=== PATIENT | female | born 1970 | race African-American/Black ===

== ENCOUNTER 2021-04-02 13:35 | Inpatient (IN) | payer OTHER ==
[2021-04-02 16:23] VITALS: BMI 22.2
[2021-04-02] MEDS ORDERED: ACETAMINOPHEN 325 MG TABLET (FP) PO PRN (21:39)
[2021-04-02] MEDS ORDERED: NICOTINE 10 MG CARTRIDGE (INHALER) IH PRN (21:39)
[2021-04-02] MEDS ORDERED: MAGNESIUM CITRATE 300 ML BOTTLE PO PRN (21:39)
[2021-04-02] MEDS ORDERED: MAG HYDROX/AL HYDROX/SIMETH 30 ML UNIT-DOSE CUP PO PRN (21:39)
[2021-04-02] MEDS ORDERED: diazePAM 5 MG TABLET PO PRN (21:39)
[2021-04-02] MEDS ORDERED: BISMUTH SUBSALICYLATE 524 MG/30 ML PO PRN (21:39)
[2021-04-02] MEDS ORDERED: IBUPROFEN 400 MG TABLET (FP) PO PRN (21:39)
[2021-04-02] MEDS ORDERED: MAGNESIUM HYDROX 2400MG/30ML ORAL SUSPENSION 30 ML CUP PO PRN (21:39)
[2021-04-02] MEDS ORDERED: ONDANSETRON *ODT* 4 MG TABLET SL PRN (21:39)
[2021-04-02] MEDS ORDERED: MENTHOL/PHENOL 1 EACH UD MM PRN (21:39)
[2021-04-02] MEDS: MELATONIN 5 MG TABLETS PO SCH (22:42)
[2021-04-02] MEDS: THIAMINE HCL 100 MG TABLET (FP) PO SCH (22:42)
[2021-04-02] MEDS: diazePAM 5 MG TABLET PO SCH (22:42)
[2021-04-02] MEDS: hydrOXYzine PAMOATE 25 MG CAPSULE (FP) PO SCH (22:42)
[2021-04-02] MEDS: ALBUTEROL SO4 HFA INHALER IH PRN (23:02)
[2021-04-03] MEDS: hydrOXYzine PAMOATE 25 MG CAPSULE (FP) PO SCH (06:05)
[2021-04-03] MEDS: diazePAM 5 MG TABLET PO SCH ×4 (06:05→22:32)
[2021-04-03] MEDS: METHOCARBAMOL 500 MG TABLET PO PRN ×2 (06:07→22:32)
[2021-04-03] MEDS: ACETAMINOPHEN 325 MG TABLET (FP) PO PRN ×2 (06:10→17:43)
[2021-04-03 08:58] LABS: EPI CELLS 11 /uL (0-25.1); HYALINE CASTS 0 /uL (0-3.1); URINE APPEARANCE CLEAR; URINE BACTERIA 1511 /uL (0-1359); URINE BILIRUBIN NEGATIVE (NEGATIVE); URINE COLOR YELLOW; URINE GLUCOSE (UA) 3+ (NEGATIVE); URINE KETONE NEGATIVE (NEGATIVE); URINE LEUK ESTERASE TRACE (NEGATIVE); URINE NITRITE NEGATIVE (NEGATIVE); URINE PROTEIN NEGATIVE (NEGATIVE); URINE RBC 1 /uL (0-23.9); URINE UROBILINOGEN 0.2 mg/dL (0.2-1.0); URINE WBC 24 /uL (0-25.8)
[2021-04-03] MEDS: NICOTINE 7 MG/24 HOURS TOPICAL PATCH TD SCH (10:52)
[2021-04-03] MEDS: PRENATAL VITAMINS W/ FOLIC ACID TABLET (FP) PO SCH (10:52)
[2021-04-03] MEDS ORDERED: INSULIN SLIDING SCALE (NOVOLOG) 1 VIAL SQ SCH (11:00)
[2021-04-03] MEDS ORDERED: INSULIN (NOVOLOG) ASPART 100 UNITS/ML 10ML VIAL SQ ONE (11:29)
[2021-04-03 11:33] LABS: HEMATOCRIT 40.6 % (32.4-45.2); HEMOGLOBIN 13.6 GM/dL (10.7-15.3); MCHC 33.5 g/dl (32.0-36.0); MEAN CELL VOLUME 92.8 fl (80-96); MEAN PLT VOLUME 10.5 fl (7.5-11.1); PLATELET COUNT 183 10^3/uL (134-434); RBC 4.38 M/mm3 (3.60-5.2); RDW 13.7 % (11.6-15.6); WHITE BLOOD COUNT 5.2 K/mm3 (4.0-10.0)
[2021-04-03 11:42] LABS: CHLORIDE 103 mmol/L (98-107); SODIUM 138 mmol/L (136-145)
[2021-04-03 11:51] LABS: CALCIUM 9.2 mg/dL (8.5-10.1)
[2021-04-03 11:52] LABS: ALBUMIN 3.1 g/dl (3.4-5.0); ANION GAP 7 MMOL/L (8-16); BLOOD UREA NITROGEN 16.8 mg/dL (7-18); CO2 29 mmol/L (21-32)
[2021-04-03 11:55] LABS: CREATININE 1.1 mg/dL (0.55-1.3); SGOT/AST 9 U/L (15-37); SGPT/ALT 13 U/L (13-61)
[2021-04-03 11:57] LABS: BILIRUBIN,TOTAL 0.4 mg/dL (0.2-1); TOT PROT 6.8 g/dl (6.4-8.2)
[2021-04-03 11:58] LABS: ALK PHOS 113 U/L (45-117)
[2021-04-03 12:00] LABS: GLUCOSE,RANDOM 471 mg/dL (74-106)
[2021-04-03 12:48] LABS: HIV INTERPRETATION NEGATIVE (NEGATIVE)
[2021-04-03] MEDS: INSULIN SLIDING SCALE (NOVOLOG) 1 VIAL SQ SCH ×2 (17:39→22:01)
[2021-04-03] MEDS: ALBUTEROL SO4 HFA INHALER IH PRN ×2 (17:46→22:31)
[2021-04-03] MEDS: NITROFURANTOIN MACROCRYSTAL 50 MG CAPSULE (FP) PO SCH ×2 (18:11→23:52)
[2021-04-03] MEDS: DOXYCYCLINE HYCLATE 100 MG CAPSULE PO SCH (18:11)
[2021-04-03] MEDS: hydrOXYzine PAMOATE 25 MG CAPSULE (FP) PO PRN (22:32)
[2021-04-03] MEDS: MELATONIN 5 MG TABLETS PO SCH (22:32)
[2021-04-03] MEDS: THIAMINE HCL 100 MG TABLET (FP) PO SCH (22:32)
[2021-04-03] MEDS: metroNIDAZOLE 0.75% VAGINAL GEL 70 GM TUBE VG SCH (22:36)
[2021-04-04] MEDS: hydrOXYzine PAMOATE 25 MG CAPSULE (FP) PO PRN ×2 (06:49→22:30)
[2021-04-04] MEDS: diazePAM 5 MG TABLET PO SCH ×3 (06:49→22:30)
[2021-04-04] MEDS: METHOCARBAMOL 500 MG TABLET PO PRN ×2 (06:49→22:30)
[2021-04-04] MEDS: NITROFURANTOIN MACROCRYSTAL 50 MG CAPSULE (FP) PO SCH ×4 (06:49→23:24)
[2021-04-04] MEDS: INSULIN SLIDING SCALE (NOVOLOG) 1 VIAL SQ SCH ×4 (06:55→22:29)
[2021-04-04] MEDS: DOXYCYCLINE HYCLATE 100 MG CAPSULE PO SCH ×2 (11:00→17:15)
[2021-04-04] MEDS: NICOTINE 7 MG/24 HOURS TOPICAL PATCH TD SCH (11:00)
[2021-04-04] MEDS: PRENATAL VITAMINS W/ FOLIC ACID TABLET (FP) PO SCH (11:00)
[2021-04-04] MEDS: metFORMIN HCL 500 MG TABLET (FP) PO SCH (17:14)
[2021-04-04] MEDS: ALBUTEROL SO4 HFA INHALER IH PRN (22:28)
[2021-04-04] MEDS: THIAMINE HCL 100 MG TABLET (FP) PO SCH (22:30)
[2021-04-04] MEDS: metroNIDAZOLE 0.75% VAGINAL GEL 70 GM TUBE VG SCH (23:02)
[2021-04-04] MEDS: MELATONIN 5 MG TABLETS PO SCH (23:02)
[2021-04-05] MEDS: NITROFURANTOIN MACROCRYSTAL 50 MG CAPSULE (FP) PO SCH ×4 (06:54→23:33)
[2021-04-05] MEDS: metFORMIN HCL 500 MG TABLET (FP) PO SCH ×2 (06:55→17:23)
[2021-04-05] MEDS: diazePAM 5 MG TABLET PO SCH ×2 (06:55→17:25)
[2021-04-05] MEDS: INSULIN SLIDING SCALE (NOVOLOG) 1 VIAL SQ SCH ×4 (07:01→23:13)
[2021-04-05] MEDS ORDERED: INSULIN SLIDING SCALE (NOVOLOG) 1 VIAL SQ ONE (07:15)
[2021-04-05] MEDS: DOXYCYCLINE HYCLATE 100 MG CAPSULE PO SCH ×2 (10:28→17:24)
[2021-04-05] MEDS: PRENATAL VITAMINS W/ FOLIC ACID TABLET (FP) PO SCH (10:29)
[2021-04-05] MEDS: NICOTINE 7 MG/24 HOURS TOPICAL PATCH TD SCH (10:30)
[2021-04-05] MEDS: THIAMINE HCL 100 MG TABLET (FP) PO SCH (23:14)
[2021-04-05] MEDS: MELATONIN 5 MG TABLETS PO SCH (23:14)
[2021-04-05] MEDS: metroNIDAZOLE 0.75% VAGINAL GEL 70 GM TUBE VG SCH (23:33)
[2021-04-05] MEDS: ACETAMINOPHEN 325 MG TABLET (FP) PO PRN (23:35)
[2021-04-06] MEDS ORDERED: diazePAM 5 MG TABLET PO ONE (06:00)
[2021-04-06] MEDS: NITROFURANTOIN MACROCRYSTAL 50 MG CAPSULE (FP) PO SCH ×3 (08:12→18:02)
[2021-04-06] MEDS: metFORMIN HCL 500 MG TABLET (FP) PO SCH ×2 (08:13→16:55)
[2021-04-06] MEDS: INSULIN SLIDING SCALE (NOVOLOG) 1 VIAL SQ SCH ×4 (08:13→22:00)
[2021-04-06] MEDS ORDERED: INSULIN SLIDING SCALE (NOVOLOG) 1 VIAL SQ ONE (08:45)
[2021-04-06] MEDS: NICOTINE 7 MG/24 HOURS TOPICAL PATCH TD SCH (11:07)
[2021-04-06] MEDS: PRENATAL VITAMINS W/ FOLIC ACID TABLET (FP) PO SCH (11:07)
[2021-04-06] MEDS: DOXYCYCLINE HYCLATE 100 MG CAPSULE PO SCH (11:07)
[2021-04-06] MEDS: THIAMINE HCL 100 MG TABLET (FP) PO SCH (22:23)
[2021-04-06] MEDS: metroNIDAZOLE 0.75% VAGINAL GEL 70 GM TUBE VG SCH (22:23)
[2021-04-06] MEDS: MELATONIN 5 MG TABLETS PO SCH (22:23)
[2021-04-07] MEDS: NITROFURANTOIN MACROCRYSTAL 50 MG CAPSULE (FP) PO SCH ×3 (01:21→12:06)
[2021-04-07] MEDS: metFORMIN HCL 500 MG TABLET (FP) PO SCH (06:22)
[2021-04-07] MEDS ORDERED: INSULIN SLIDING SCALE (NOVOLOG) 1 VIAL SQ ONE ×2 (06:59→12:03)
[2021-04-07] MEDS: INSULIN SLIDING SCALE (NOVOLOG) 1 VIAL SQ SCH ×2 (07:00→12:05)
[2021-04-07] MEDS: PRENATAL VITAMINS W/ FOLIC ACID TABLET (FP) PO SCH (11:41)
[2021-04-07] MEDS: NICOTINE 7 MG/24 HOURS TOPICAL PATCH TD SCH (11:41)
[2021-04-07 13:16] VITALS: BP 106/73; PULSE 97; TEMP 97.1
== END 2021-04-07 15:25 | disposition other institution (70) | DRG 774 ==
LOC: YASAS 13:35 → Y3N 21:58
PROVIDERS: ADMIT Allergy & Immunology; ATTEND Allergy & Immunology
PROC: HZ2ZZZZ Detoxification Services for Substance Abuse Treatment (ICD-10-PCS; principal; 2021-04-02)
DX: F10.230 Alcohol dependence with withdrawal, uncomplicated (principal); F14.20 Cocaine dependence, uncomplicated; F12.20 Cannabis dependence, uncomplicated; F17.210 Nicotine dependence, cigarettes, uncomplicated; E11.65 Type 2 diabetes mellitus with hyperglycemia; Z79.84 Long term (current) use of oral hypoglycemic drugs; J45.909 Unspecified asthma, uncomplicated; L29.2 Pruritus vulvae; L29.8 Other pruritus; N39.0 Urinary tract infection, site not specified; B95.1 Streptococcus, group B, as the cause of diseases classified elsewhere; R81 Glycosuria; R26.89 Other abnormalities of gait and mobility; Z72.51 High risk heterosexual behavior; Z86.19 Personal history of other infectious and parasitic diseases; Z88.0 Allergy status to penicillin; Z88.6 Allergy status to analgesic agent; Z91.02 Food additives allergy status
CPT/HCPCS: 36415; 80053; 81003; 82962; 85027; 86593; 86780; 87077; 87086; 87389; C9803; U0003; U0005

== ENCOUNTER 2021-04-07 14:51 | Inpatient (IN) | payer OTHER ==
[2021-04-07] MEDS ORDERED: MAGNESIUM HYDROX 2400MG/30ML ORAL SUSPENSION 30 ML CUP PO PRN (16:17)
[2021-04-07] MEDS ORDERED: hydrOXYzine PAMOATE 25 MG CAPSULE (FP) PO PRN (16:17)
[2021-04-07] MEDS ORDERED: MAGNESIUM CITRATE 300 ML BOTTLE PO PRN (16:17)
[2021-04-07] MEDS ORDERED: NICOTINE 10 MG CARTRIDGE (INHALER) IH PRN (16:17)
[2021-04-07] MEDS ORDERED: guaiFENesin 200 MG/10 ML 10 ML UNIT-DOSE CUPS PO PRN (16:17)
[2021-04-07] MEDS ORDERED: LOPERAMIDE HCL 2 MG CAPSULE PO PRN (16:17)
[2021-04-07] MEDS ORDERED: P-EPHED 60MG/TRIPROLIDI 2.5MG TABLET PO PRN (16:17)
[2021-04-07] MEDS ORDERED: INSULIN (NOVOLOG) ASPART 100 UNITS/ML 10ML VIAL ONE (17:07)
[2021-04-07] MEDS: metFORMIN HCL 500 MG TABLET (FP) PO SCH (17:08)
[2021-04-07] MEDS: INSULIN SLIDING SCALE (NOVOLOG) 1 VIAL SQ SCH ×2 (17:08→21:38)
[2021-04-07] MEDS: NITROFURANTOIN MACROCRYSTAL 50 MG CAPSULE (FP) PO SCH (19:34)
[2021-04-07] MEDS: THIAMINE HCL 100 MG TABLET (FP) PO SCH (21:34)
[2021-04-07] MEDS: MELATONIN 5 MG TABLETS PO SCH (21:34)
[2021-04-08] MEDS: NITROFURANTOIN MACROCRYSTAL 50 MG CAPSULE (FP) PO SCH ×4 (00:47→18:14)
[2021-04-08] MEDS ORDERED: INSULIN (NOVOLOG) ASPART 100 UNITS/ML 10ML VIAL ONE ×3 (06:37→11:31)
[2021-04-08] MEDS: metFORMIN HCL 500 MG TABLET (FP) PO SCH ×2 (06:49→16:47)
[2021-04-08] MEDS: INSULIN SLIDING SCALE (NOVOLOG) 1 VIAL SQ SCH ×4 (06:50→21:37)
[2021-04-08] MEDS: PRENATAL VITAMINS W/ FOLIC ACID TABLET (FP) PO SCH (10:19)
[2021-04-08] MEDS: NICOTINE 7 MG/24 HOURS TOPICAL PATCH TD SCH (10:20)
[2021-04-08] MEDS: THIAMINE HCL 100 MG TABLET (FP) PO SCH (21:36)
[2021-04-08] MEDS: MELATONIN 5 MG TABLETS PO SCH (21:36)
[2021-04-09] MEDS: INSULIN SLIDING SCALE (NOVOLOG) 1 VIAL SQ SCH ×4 (06:40→21:44)
[2021-04-09] MEDS ORDERED: INSULIN (NOVOLOG) ASPART 100 UNITS/ML 10ML VIAL ONE ×4 (06:40→16:45)
[2021-04-09] MEDS: metFORMIN HCL 500 MG TABLET (FP) PO SCH ×2 (06:42→16:54)
[2021-04-09] MEDS: NICOTINE 7 MG/24 HOURS TOPICAL PATCH TD SCH (11:05)
[2021-04-09] MEDS: PRENATAL VITAMINS W/ FOLIC ACID TABLET (FP) PO SCH (11:05)
[2021-04-09] MEDS: ALBUTEROL SO4 HFA INHALER IH PRN (19:57)
[2021-04-09] MEDS: MAG HYDROX/AL HYDROX/SIMETH 30 ML UNIT-DOSE CUP PO PRN (20:29)
[2021-04-09] MEDS: MELATONIN 5 MG TABLETS PO SCH (21:42)
[2021-04-09] MEDS: THIAMINE HCL 100 MG TABLET (FP) PO SCH (21:42)
[2021-04-09] MEDS: ACETAMINOPHEN 325 MG TABLET (FP) PO PRN (21:43)
[2021-04-10] MEDS ORDERED: INSULIN (NOVOLOG) ASPART 100 UNITS/ML 10ML VIAL ONE ×4 (07:49→22:46)
[2021-04-10] MEDS: metFORMIN HCL 500 MG TABLET (FP) PO SCH ×2 (07:54→16:42)
[2021-04-10] MEDS: INSULIN SLIDING SCALE (NOVOLOG) 1 VIAL SQ SCH ×4 (07:54→21:45)
[2021-04-10] MEDS: NICOTINE 7 MG/24 HOURS TOPICAL PATCH TD SCH (10:44)
[2021-04-10] MEDS: PRENATAL VITAMINS W/ FOLIC ACID TABLET (FP) PO SCH (10:44)
[2021-04-10] MEDS: THIAMINE HCL 100 MG TABLET (FP) PO SCH (21:43)
[2021-04-10] MEDS: MELATONIN 5 MG TABLETS PO SCH (21:43)
[2021-04-11] MEDS ORDERED: INSULIN (NOVOLOG) ASPART 100 UNITS/ML 10ML VIAL ONE ×4 (03:20→16:33)
[2021-04-11] MEDS: INSULIN SLIDING SCALE (NOVOLOG) 1 VIAL SQ SCH ×4 (06:52→21:40)
[2021-04-11] MEDS: metFORMIN HCL 500 MG TABLET (FP) PO SCH ×2 (06:52→16:52)
[2021-04-11] MEDS: IBUPROFEN 400 MG TABLET (FP) PO PRN (07:02)
[2021-04-11] MEDS: NICOTINE 7 MG/24 HOURS TOPICAL PATCH TD SCH (10:38)
[2021-04-11] MEDS: MENTHOL/PHENOL 1 EACH UD MM PRN (10:38)
[2021-04-11] MEDS: PRENATAL VITAMINS W/ FOLIC ACID TABLET (FP) PO SCH (10:38)
[2021-04-11] MEDS: ACETAMINOPHEN 325 MG TABLET (FP) PO PRN (16:54)
[2021-04-11] MEDS: MELATONIN 5 MG TABLETS PO SCH (21:41)
[2021-04-11] MEDS: THIAMINE HCL 100 MG TABLET (FP) PO SCH (21:41)
[2021-04-11] MEDS: SIMETHICONE 80 MG TAB.CHEW (FP) PO PRN (21:42)
[2021-04-12] MEDS: IBUPROFEN 400 MG TABLET (FP) PO PRN ×2 (01:08→21:10)
[2021-04-12] MEDS: metFORMIN HCL 500 MG TABLET (FP) PO SCH ×2 (07:03→16:42)
[2021-04-12] MEDS: INSULIN SLIDING SCALE (NOVOLOG) 1 VIAL SQ SCH ×4 (07:04→21:07)
[2021-04-12] MEDS: MENTHOL/PHENOL 1 EACH UD MM PRN (07:05)
[2021-04-12] MEDS ORDERED: INSULIN (NOVOLOG) ASPART 100 UNITS/ML 10ML VIAL ONE ×3 (07:23→11:17)
[2021-04-12] MEDS: PRENATAL VITAMINS W/ FOLIC ACID TABLET (FP) PO SCH (10:13)
[2021-04-12] MEDS: NICOTINE 7 MG/24 HOURS TOPICAL PATCH TD SCH (10:14)
[2021-04-12] MEDS: MELATONIN 5 MG TABLETS PO SCH (21:09)
[2021-04-12] MEDS: THIAMINE HCL 100 MG TABLET (FP) PO SCH (21:09)
[2021-04-13] MEDS: metFORMIN HCL 500 MG TABLET (FP) PO SCH ×2 (08:08→16:30)
[2021-04-13] MEDS: INSULIN SLIDING SCALE (NOVOLOG) 1 VIAL SQ SCH ×4 (08:09→21:07)
[2021-04-13] MEDS: PRENATAL VITAMINS W/ FOLIC ACID TABLET (FP) PO SCH (09:50)
[2021-04-13] MEDS: NICOTINE 7 MG/24 HOURS TOPICAL PATCH TD SCH (09:50)
[2021-04-13] MEDS: IBUPROFEN 400 MG TABLET (FP) PO PRN (09:51)
[2021-04-13] MEDS: MENTHOL/PHENOL 1 EACH UD MM PRN (09:52)
[2021-04-13] MEDS ORDERED: INSULIN (NOVOLOG) ASPART 100 UNITS/ML 10ML VIAL ONE ×3 (11:03→22:34)
[2021-04-13] MEDS: DOXYCYCLINE HYCLATE 100 MG TABLET PO SCH (17:36)
[2021-04-13] MEDS: THIAMINE HCL 100 MG TABLET (FP) PO SCH (21:09)
[2021-04-13] MEDS: IBUPROFEN 600 MG TABLET (FP) PO PRN (22:28)
[2021-04-13] MEDS: PRAZOSIN HCL 1 MG CAPSULE PO SCH (22:28)
[2021-04-14] MEDS ORDERED: diphenhydrAMINE HCL 25 MG CAPSULE (FP) PO ONE ×2 (01:40→21:06)
[2021-04-14] MEDS: diphenhydrAMINE HCL 50 MG CAPSULE PO PRN ×2 (01:41→21:07)
[2021-04-14] MEDS ORDERED: INSULIN (NOVOLOG) ASPART 100 UNITS/ML 10ML VIAL ONE ×4 (03:07→16:56)
[2021-04-14] MEDS: metFORMIN HCL 500 MG TABLET (FP) PO SCH ×2 (06:50→16:55)
[2021-04-14] MEDS: INSULIN SLIDING SCALE (NOVOLOG) 1 VIAL SQ SCH ×4 (06:51→21:08)
[2021-04-14] MEDS: PRENATAL VITAMINS W/ FOLIC ACID TABLET (FP) PO SCH (10:09)
[2021-04-14] MEDS: NICOTINE 7 MG/24 HOURS TOPICAL PATCH TD SCH (10:09)
[2021-04-14] MEDS: FLUoxetine HCL 20 MG CAPSULE PO SCH (10:10)
[2021-04-14] MEDS: DOXYCYCLINE HYCLATE 100 MG TABLET PO SCH ×2 (10:10→18:07)
[2021-04-14] MEDS: IBUPROFEN 600 MG TABLET (FP) PO PRN (21:07)
[2021-04-14] MEDS: THIAMINE HCL 100 MG TABLET (FP) PO SCH (21:07)
[2021-04-14] MEDS: PRAZOSIN HCL 1 MG CAPSULE PO SCH (21:07)
[2021-04-15] MEDS ORDERED: INSULIN (NOVOLOG) ASPART 100 UNITS/ML 10ML VIAL ONE ×4 (03:17→16:44)
[2021-04-15] MEDS: INSULIN SLIDING SCALE (NOVOLOG) 1 VIAL SQ SCH ×4 (06:55→21:38)
[2021-04-15] MEDS: metFORMIN HCL 500 MG TABLET (FP) PO SCH ×2 (06:56→16:47)
[2021-04-15] MEDS: PRENATAL VITAMINS W/ FOLIC ACID TABLET (FP) PO SCH (10:42)
[2021-04-15] MEDS: FLUoxetine HCL 20 MG CAPSULE PO SCH (10:42)
[2021-04-15] MEDS: DOXYCYCLINE HYCLATE 100 MG TABLET PO SCH ×2 (10:42→18:39)
[2021-04-15] MEDS: NICOTINE 7 MG/24 HOURS TOPICAL PATCH TD SCH (10:42)
[2021-04-15] MEDS: IBUPROFEN 600 MG TABLET (FP) PO PRN (21:40)
[2021-04-15] MEDS: PRAZOSIN HCL 1 MG CAPSULE PO SCH (21:40)
[2021-04-15] MEDS ORDERED: diphenhydrAMINE HCL 25 MG CAPSULE (FP) PO ONE (21:41)
[2021-04-15] MEDS: THIAMINE HCL 100 MG TABLET (FP) PO SCH (21:41)
[2021-04-15] MEDS: SIMETHICONE 80 MG TAB.CHEW (FP) PO PRN (21:42)
[2021-04-15] MEDS: diphenhydrAMINE HCL 50 MG CAPSULE PO PRN (21:42)
[2021-04-16] MEDS ORDERED: INSULIN (NOVOLOG) ASPART 100 UNITS/ML 10ML VIAL ONE ×2 (02:57→06:48)
[2021-04-16] MEDS: INSULIN SLIDING SCALE (NOVOLOG) 1 VIAL SQ SCH ×4 (06:31→22:09)
[2021-04-16] MEDS: metFORMIN HCL 500 MG TABLET (FP) PO SCH ×2 (06:32→16:54)
[2021-04-16] MEDS: PRENATAL VITAMINS W/ FOLIC ACID TABLET (FP) PO SCH (11:05)
[2021-04-16] MEDS: DOXYCYCLINE HYCLATE 100 MG TABLET PO SCH ×2 (11:05→18:04)
[2021-04-16] MEDS: NICOTINE 7 MG/24 HOURS TOPICAL PATCH TD SCH (11:05)
[2021-04-16] MEDS: FLUoxetine HCL 20 MG CAPSULE PO SCH (11:05)
[2021-04-16] MEDS: MAG HYDROX/AL HYDROX/SIMETH 30 ML UNIT-DOSE CUP PO PRN ×2 (11:08→22:14)
[2021-04-16] MEDS: PRAZOSIN HCL 1 MG CAPSULE PO SCH (22:08)
[2021-04-16] MEDS: THIAMINE HCL 100 MG TABLET (FP) PO SCH (22:08)
[2021-04-16] MEDS: diphenhydrAMINE HCL 50 MG CAPSULE PO PRN (22:11)
[2021-04-16] MEDS ORDERED: diphenhydrAMINE HCL 25 MG CAPSULE (FP) PO ONE (22:11)
[2021-04-16] MEDS: IBUPROFEN 600 MG TABLET (FP) PO PRN (22:12)
[2021-04-17] MEDS: metFORMIN HCL 500 MG TABLET (FP) PO SCH ×2 (07:01→16:30)
[2021-04-17] MEDS: INSULIN SLIDING SCALE (NOVOLOG) 1 VIAL SQ SCH ×4 (07:04→22:05)
[2021-04-17] MEDS ORDERED: INSULIN (NOVOLOG) ASPART 100 UNITS/ML 10ML VIAL ONE ×4 (07:04→22:37)
[2021-04-17] MEDS: DOXYCYCLINE HYCLATE 100 MG TABLET PO SCH ×2 (10:11→17:32)
[2021-04-17] MEDS: FLUoxetine HCL 20 MG CAPSULE PO SCH (10:11)
[2021-04-17] MEDS: PRENATAL VITAMINS W/ FOLIC ACID TABLET (FP) PO SCH (10:11)
[2021-04-17] MEDS: NICOTINE 7 MG/24 HOURS TOPICAL PATCH TD SCH (10:11)
[2021-04-17] MEDS: MAG HYDROX/AL HYDROX/SIMETH 30 ML UNIT-DOSE CUP PO PRN ×2 (10:12→16:32)
[2021-04-17] MEDS ORDERED: PT OWN MED DRAWER 7, Y5N ONE ×2 (15:03→18:48)
[2021-04-17] MEDS: ALBUTEROL SO4 HFA INHALER IH PRN ×2 (15:03→23:45)
[2021-04-17] MEDS: SIMETHICONE 80 MG TAB.CHEW (FP) PO PRN (18:48)
[2021-04-17] MEDS: PRAZOSIN HCL 1 MG CAPSULE PO SCH (22:04)
[2021-04-17] MEDS: THIAMINE HCL 100 MG TABLET (FP) PO SCH (22:05)
[2021-04-17] MEDS ORDERED: diphenhydrAMINE HCL 25 MG CAPSULE (FP) PO ONE (22:07)
[2021-04-17] MEDS: diphenhydrAMINE HCL 50 MG CAPSULE PO PRN (22:08)
[2021-04-18] MEDS ORDERED: INSULIN (NOVOLOG) ASPART 100 UNITS/ML 10ML VIAL ONE ×4 (03:28→16:53)
[2021-04-18] MEDS: metFORMIN HCL 500 MG TABLET (FP) PO SCH ×2 (06:50→16:56)
[2021-04-18] MEDS: INSULIN SLIDING SCALE (NOVOLOG) 1 VIAL SQ SCH ×4 (06:50→21:36)
[2021-04-18] MEDS: DOXYCYCLINE HYCLATE 100 MG TABLET PO SCH ×2 (11:39→18:08)
[2021-04-18] MEDS: PRENATAL VITAMINS W/ FOLIC ACID TABLET (FP) PO SCH (11:39)
[2021-04-18] MEDS: FLUoxetine HCL 20 MG CAPSULE PO SCH (11:40)
[2021-04-18] MEDS: NICOTINE 7 MG/24 HOURS TOPICAL PATCH TD SCH (11:46)
[2021-04-18] MEDS: MAG HYDROX/AL HYDROX/SIMETH 30 ML UNIT-DOSE CUP PO PRN (16:59)
[2021-04-18] MEDS: THIAMINE HCL 100 MG TABLET (FP) PO SCH (21:35)
[2021-04-18] MEDS: PRAZOSIN HCL 1 MG CAPSULE PO SCH (21:35)
[2021-04-18] MEDS: SIMETHICONE 80 MG TAB.CHEW (FP) PO PRN (21:35)
[2021-04-18] MEDS ORDERED: diphenhydrAMINE HCL 25 MG CAPSULE (FP) PO ONE (21:47)
[2021-04-18] MEDS: diphenhydrAMINE HCL 50 MG CAPSULE PO PRN (21:48)
[2021-04-19] MEDS ORDERED: INSULIN (NOVOLOG) ASPART 100 UNITS/ML 10ML VIAL ONE ×3 (03:07→12:39)
[2021-04-19] MEDS: INSULIN SLIDING SCALE (NOVOLOG) 1 VIAL SQ SCH ×4 (07:50→21:31)
[2021-04-19] MEDS: metFORMIN HCL 500 MG TABLET (FP) PO SCH ×2 (07:50→16:54)
[2021-04-19] MEDS: FLUoxetine HCL 20 MG CAPSULE PO SCH (10:20)
[2021-04-19] MEDS: DOXYCYCLINE HYCLATE 100 MG TABLET PO SCH ×2 (10:20→18:05)
[2021-04-19] MEDS: PRENATAL VITAMINS W/ FOLIC ACID TABLET (FP) PO SCH (10:20)
[2021-04-19] MEDS: NICOTINE 7 MG/24 HOURS TOPICAL PATCH TD SCH (10:21)
[2021-04-19] MEDS ORDERED: COLLOIDAL OATMEAL 1 BAR EACH TP PRN (11:09)
[2021-04-19 15:49] VITALS: BP 101/67; PULSE 77; TEMP 97.4
[2021-04-19] MEDS: SIMETHICONE 80 MG TAB.CHEW (FP) PO PRN ×2 (16:56→21:31)
[2021-04-19] MEDS ORDERED: diphenhydrAMINE HCL 25 MG CAPSULE (FP) PO ONE (19:56)
[2021-04-19] MEDS: THIAMINE HCL 100 MG TABLET (FP) PO SCH (21:31)
[2021-04-19] MEDS: PRAZOSIN HCL 1 MG CAPSULE PO SCH (21:31)
[2021-04-19] MEDS: diphenhydrAMINE HCL 50 MG CAPSULE PO PRN (21:32)
[2021-04-20] MEDS ORDERED: INSULIN (NOVOLOG) ASPART 100 UNITS/ML 10ML VIAL ONE ×2 (05:27→07:52)
[2021-04-20] MEDS: INSULIN SLIDING SCALE (NOVOLOG) 1 VIAL SQ SCH (07:53)
[2021-04-20] MEDS: metFORMIN HCL 500 MG TABLET (FP) PO SCH (07:53)
[2021-04-20] MEDS ORDERED: PT OWN MED DRAWER 7, Y5N ONE (08:29)
[2021-04-20] MEDS: PRENATAL VITAMINS W/ FOLIC ACID TABLET (FP) PO SCH (09:59)
[2021-04-20] MEDS: FLUoxetine HCL 20 MG CAPSULE PO SCH (09:59)
[2021-04-20] MEDS: NICOTINE 7 MG/24 HOURS TOPICAL PATCH TD SCH (09:59)
[2021-04-20] MEDS: DOXYCYCLINE HYCLATE 100 MG TABLET PO SCH (09:59)
== END 2021-04-20 11:25 | disposition home or self-care (01) | DRG 772 ==
LOC: YASAS 14:51 → Y5N 14:56
PROVIDERS: ADMIT Allergy & Immunology; ATTEND Allergy & Immunology
PROC: HZ42ZZZ Group Counseling for Substance Abuse Treatment, Cognitive-Behavioral (ICD-10-PCS; principal; 2021-04-07)
DX: F10.20 Alcohol dependence, uncomplicated (principal); F14.20 Cocaine dependence, uncomplicated; F12.20 Cannabis dependence, uncomplicated; F17.210 Nicotine dependence, cigarettes, uncomplicated; F43.10 Post-traumatic stress disorder, unspecified; A53.0 Latent syphilis, unspecified as early or late; J45.909 Unspecified asthma, uncomplicated; J02.9 Acute pharyngitis, unspecified; E11.9 Type 2 diabetes mellitus without complications; Z79.84 Long term (current) use of oral hypoglycemic drugs; Z86.19 Personal history of other infectious and parasitic diseases; Z87.828 Personal history of other (healed) physical injury and trauma; Z88.0 Allergy status to penicillin; Z88.6 Allergy status to analgesic agent
CPT/HCPCS: 82962; 87070